=== PATIENT | female | born 1955 | race Caucasian/White ===

== ENCOUNTER 2022-10-12 18:11 | Inpatient (IN) | payer MEDICARE ==
[~2022-10-12] VITALS: Ht 172.7 cm; Wt 107.3 kg
[2022-10-12] MEDS ORDERED: ASPIRIN 325 MG TAB PO ONE (18:30)
[2022-10-12] MEDS ORDERED: FAMOTIDINE 20 MG/2 ML VIAL IV ONE ×2 (18:30→18:34)
[2022-10-12] MEDS ORDERED: ASPIRIN 325 MG TAB ONE (18:33)
[2022-10-12] MEDS ORDERED: ONDANSETRON HCL INJ 2MG/ML 2ML 2 MG/ML VIAL IV PRN (19:15)
[2022-10-12] MEDS ORDERED: SODIUM CHLORIDE FLUSH 10 ML SYR INJ PRN (19:15)
[2022-10-12] MEDS ORDERED: ZOLPIDEM TARTRATE 5 MG TAB PO PRN (19:15)
[2022-10-12] MEDS ORDERED: CLONIDINE HCL 0.1 MG TAB PO PRN (19:15)
[2022-10-12] MEDS ORDERED: ENALAPRILAT IV INJ 1.25 MG/ML VIAL IV PRN (19:15)
[2022-10-12] MEDS: METOPROLOL TARTRATE 25 MG TAB PO SCH (20:00)
[2022-10-12] MEDS: FAMOTIDINE 20 MG TAB PO SCH (20:00)
[2022-10-12 21:00] VITALS: BP 135/75
[2022-10-12 22:10] VITALS: BP 130/69
[2022-10-12] MEDS ORDERED: PNEUMOCOCCAL VACCINE POLYVALENT 23 MCG/0.5 ML VIAL IM SCH (22:22)
[2022-10-12] MEDS ORDERED: INFLUENZA VIRUS VAC SPLIT INJ 0.5 ML SYR IM SCH (22:22)
[2022-10-12 23:34] LABS: CREATINE KINASE MB 1.6 ng/mL (0-5.0)
[2022-10-13] VITALS (8 sets, daily range): BP systolic 101–118; BP diastolic 51–73
[2022-10-13] MEDS: ACETAMINOPHEN 325 MG TAB PO PRN ×2 (03:55→12:18)
[2022-10-13 06:50] LABS: CHOL/HDL RATIO 3.8 (3.0-3.6)
[2022-10-13 06:59] LABS: CREATINE KINASE MB 1.5 ng/mL (0-5.0)
[2022-10-13] MEDS: METOPROLOL TARTRATE 25 MG TAB PO SCH ×2 (08:00→20:00)
[2022-10-13] MEDS: FAMOTIDINE 20 MG TAB PO SCH ×2 (08:00→21:46)
[2022-10-13] MEDS: ASPIRIN 325 MG TAB EC PO SCH (09:00)
[2022-10-14] VITALS (7 sets, daily range): BP systolic 110–127; BP diastolic 55–83
[2022-10-14] MEDS: METOPROLOL TARTRATE 25 MG TAB PO SCH ×2 (08:00→20:00)
[2022-10-14] MEDS: FAMOTIDINE 20 MG TAB PO SCH ×2 (08:00→21:28)
[2022-10-14] MEDS: ASPIRIN 325 MG TAB EC PO SCH (08:05)
[2022-10-14] MEDS ORDERED: ONDANSETRON HCL 4 MG ORAL DISINTEGRATING TAB PO PRN (11:45)
[2022-10-14] MEDS: ACETAMINOPHEN 325 MG TAB PO PRN (14:45)
[2022-10-15] VITALS (9 sets, daily range): BP systolic 111–132; BP diastolic 57–94
[2022-10-15] MEDS: METOPROLOL TARTRATE 25 MG TAB PO SCH ×2 (08:00→20:00)
[2022-10-15] MEDS: FAMOTIDINE 20 MG TAB PO SCH ×2 (08:00→20:00)
[2022-10-15] MEDS: ASPIRIN 325 MG TAB EC PO SCH (09:00)
[2022-10-15] MEDS: ACETAMINOPHEN 325 MG TAB PO PRN ×2 (09:48→20:30)
[2022-10-16] VITALS: BP_SYST 106; BP_SYST 122; BP_SYST 127; BP_DIAS 60; BP_DIAS 71; BP_DIAS 95
[2022-10-16 05:24] LABS: BASOPHILS # (AUTO) 0.1 (0.0-0.1); BASOPHILS % 0.8 % (0.0-1.0); EOSINOPHILS # (AUTO) 0.1 (0.0-0.4); HEMATOCRIT 40.8 % (34.2-44.1); HEMOGLOBIN 13.3 g/dL (12.0-16.0); LYMPHOCYTES % 34.1 % (18.0-39.1); MEAN CORPUSCULAR HEMOGLOBIN 30.9 pg (28-32); MEAN CORPUSCULAR HGB CONC 32.6 g/dL (31-35); MEAN CORPUSCULAR VOLUME 94.7 fL (81-99); MONOCYTES # (AUTO) 0.6 (0.2-0.8); MONOCYTES % 10.4 % (4.4-11.3); NEUTROPHILS # (AUTO) 3.1 (2.1-6.9); NEUTROPHILS % 52.4 % (38.7-80.0); PLATELET COUNT 269 x10e3/uL (140-360); RED BLOOD COUNT 4.31 x10e6/uL (3.6-5.1); RED CELL DISTRIBUTION WIDTH 12.8 % (11.7-14.4)
[2022-10-16 05:43] VITALS: BP 117/66
[2022-10-16 05:49] LABS: ANION GAP 11.1 mmol/L (8-16); CALCIUM 8.9 mg/dL (8.4-10.2); CREATININE, SERUM 0.65 mg/dL (0.57-1.11); MAGNESIUM 1.9 MG/DL (1.3-2.1); PHOSPHORUS 4.1 MG/DL (2.3-4.7); POTASSIUM 4.1 mmol/L (3.5-5.1)
[2022-10-16 09:05] VITALS: BP 105/67
[2022-10-16 09:27] VITALS: BP 105/67
[2022-10-16] MEDS: ASPIRIN 325 MG TAB EC PO SCH (10:17)
[2022-10-16] MEDS: FAMOTIDINE 20 MG TAB PO SCH (10:18)
[2022-10-16] MEDS: METOPROLOL TARTRATE 25 MG TAB PO SCH (10:18)
[2022-10-16] MEDS: ACETAMINOPHEN 325 MG TAB PO PRN (10:18)
[2022-10-16 12:50] VITALS: BP 109/70
[2022-10-16 16:11] VITALS: BP 108/64
[2022-10-16] MEDS ORDERED: TOPIRAMATE 25 MG TAB PO SCH (17:00)
[2022-10-17] MEDS ORDERED: ASPIRIN 81 MG ENTERIC COATED PO SCH (09:00)
== END 2022-10-16 19:04 | disposition home or self-care (01) | DRG 312 ==
LOC: FSED 18:23 → ERHOLD 19:08 → MED/SURG3 20:51 → OBSVTOIN 10-14 09:46
PROVIDERS: ADMIT Internal Medicine; ATTEND Internal Medicine
DX: R55 Syncope and collapse (principal); J45.909 Unspecified asthma, uncomplicated; W19.XXXA Unspecified fall, initial encounter; T14.90XA Injury, unspecified, initial encounter; R07.9 Chest pain, unspecified; Z63.9 Problem related to primary support group, unspecified; Z87.891 Personal history of nicotine dependence; Z79.82 Long term (current) use of aspirin
CPT/HCPCS: 36415; 70450; 71045; 80048; 80053; 80061; 81003; 82550; 82553; 82948; 83735; 84100; 84484; 85025; 93005; 93306; 93880; 95819; 99284; G0378